=== PATIENT | female | born 1960 | race Caucasian/White ===

== ENCOUNTER 2020-05-04 08:52 | Outpatient (CLI) | payer OTHER ==
--- NOTE | 2020-05-04 11:08 | RAD ---
Right knee 4 views: HISTORY: Knee pain. FINDINGS: Moderate degenerative changes are noted. Mild loss of medial joint space. Marginal osteophytes are seen bilaterally, more prominent medially. Prominent osteophytes and narrowing of the patellofemoral joint. No significant joint effusion. IMPRESSION: Moderate degenerative changes right knee. POS: [facility]
== END 2020-05-04 08:53 | disposition home or self-care (01) ==
LOC: RAD-FRANK 08:52
PROVIDERS: ATTEND Nurse Practitioner Family
DX: M25.561 Pain in right knee (principal); M17.11 Unilateral primary osteoarthritis, right knee

== ENCOUNTER 2020-10-06 10:30 | Inpatient (IN) | payer BC ==
[2020-10-06 21:54] LABS: SARS-CoV-2 NAA Rapid Test Not Detected (NotDetected)
[2020-10-11] MEDS ORDERED: Tranexamic Acid 1,000 MG/10 ML VIAL ONE (05:52)
[2020-10-11] MEDS ORDERED: Sodium Chloride 0.9% 100 ML ONE ×2 (05:53→06:55)
[2020-10-11] MEDS ORDERED: Vancomycin 1 GM in Premix Bag 1 BAG IVPB SCH (06:00)
[2020-10-11] MEDS ORDERED: Fentanyl 100 MCG/2 ML VIAL ONE ×3 (06:32→09:48)
[2020-10-11] MEDS ORDERED: Midazolam HCl 2 mg/2 ml Vial ONE (06:32)
[2020-10-11] MEDS ORDERED: Ondansetron PF 4 MG/2 ML Vial IVP PRN ×2 (06:50→07:30)
[2020-10-11] MEDS ORDERED: Zolpidem Tartrate 5 MG TAB PO PRN ×2 (06:50→07:30)
[2020-10-11] MEDS ORDERED: diphenhydrAMINE 25 MG CAP PO PRN (06:50)
[2020-10-11] MEDS ORDERED: Promethazine HCl 25 MG/ML VIAL IM PRN ×2 (06:50→08:44)
[2020-10-11] MEDS ORDERED: HYDROcodone/Acetaminophen 10/325 mg Tablet PO PRN ×4 (06:50→07:30)
[2020-10-11] MEDS ORDERED: Vancomycin 1 GM/200 ML BAG ONE (06:55)
[2020-10-11] MEDS ORDERED: Vancomycin HCl 500 MG VIAL ONE (06:55)
[2020-10-11] MEDS ORDERED: CEFAZOLIN 2 GM in Premix Bag 1 BAG IVPB SCH (07:00)
[2020-10-11] MEDS ORDERED: Clindamycin/D5W 900 mg/50 ml Premix Bag ONE (07:04)
[2020-10-11] MEDS ORDERED: Levofloxacin 500 mg/D5W 100 ml Premix Bag ONE (07:04)
[2020-10-11] MEDS ORDERED: PROPOFOL 200 MG/20 ML VIAL ONE (07:23)
[2020-10-11] MEDS ORDERED: Ondansetron PF 4 MG/2 ML Vial ONE (07:23)
[2020-10-11] MEDS ORDERED: Lidocaine 1% PF 5 ML VIAL ONE (07:23)
[2020-10-11] MEDS ORDERED: Bupivacaine HCl 0.5%/Epinephrine 1:200,000/PF 30 ml Vial ONE (07:23)
[2020-10-11] MEDS ORDERED: Ropivacaine 2% HCl/PF (20 MG/10 ML VIAL) ONE (07:23)
[2020-10-11] MEDS ORDERED: Fentanyl 100 MCG/2 ML VIAL SLOW IVP PRN (07:28)
[2020-10-11] MEDS ORDERED: Ropivacaine 0.2% 550 ML 550 ML NERVE BLCK SCH (07:30)
[2020-10-11] MEDS ORDERED: traMADol HCl 50 MG TAB PO PRN (07:30)
[2020-10-11] MEDS ORDERED: Ondansetron HCl/PF 4 MG/2 ML Vial IVP PRN (08:44)
[2020-10-11] MEDS ORDERED: Promethazine HCl 25 MG/ML VIAL SLOW IVP PRN (08:44)
[2020-10-11] MEDS ORDERED: Ketorolac Tromethamine 30 MG/ML VIAL ONE (09:08)
[2020-10-11 10:42] VITALS: BMI 41.1
[2020-10-11] MEDS: Aspirin 81 mg Enteric Coated Tablet PO SCH ×2 (11:02→21:43)
[2020-10-11] MEDS: Sodium Chloride 0.9% 1,000 ML IV SCH ×2 (11:02→14:15)
[2020-10-11] MEDS ORDERED: Ketorolac Tromethamine 30 MG/ML VIAL IVP SCH ×2 (12:00→14:00)
[2020-10-11] MEDS: Promethazine HCl 25 MG/ML VIAL IM PRN ×2 (12:01→13:17)
[2020-10-11] MEDS: Ketorolac Tromethamine 30 MG/ML VIAL IVP SCH ×2 (14:15→21:42)
[2020-10-11] MEDS ORDERED: Clindamycin/D5W 900 MG in Premix Bag 1 BAG IVPB SCH (15:00)
[2020-10-11] MEDS: Vancomycin 1.5 GRAM/300 ML BAG 1.5 GM in Premix Bag 1 BAG IVPB SCH (18:57)
[2020-10-11] MEDS: Acetaminophen 325 MG TAB PO PRN (19:02)
[2020-10-12] MEDS: Sodium Chloride 0.9% 1,000 ML IV SCH ×2 (02:36→15:30)
[2020-10-12] MEDS: Ketorolac Tromethamine 30 MG/ML VIAL IVP SCH ×4 (02:37→20:43)
[2020-10-12 05:49] LABS: Hemoglobin 10.5 g/dL (12.0-16.0); Mean Corpuscular HGB CONC 32.5 g/dL (32.0-36.0); Mean Corpuscular Hemoglobin 29.9 pg (27.0-31.0); Mean Corpuscular Volume 91.9 fL (78.0-98.0); Mean Platelet Volume 7.2 fL (7.4-10.4); Platelet Count 275 thou/uL (130-400); RBC Distribution Width 12.3 % (11.5-14.5); Red Blood Cell (RBC) Count 3.51 mill/uL (4.20-5.40); White Blood Cell (WBC) Count 11.1 thou/uL (4.8-10.8)
[2020-10-12] MEDS: Vancomycin 1.5 GRAM/300 ML BAG 1.5 GM in Premix Bag 1 BAG IVPB SCH ×2 (06:09→18:06)
[2020-10-12] MEDS: Ferrous Gluconate 324 MG TAB PO SCH ×2 (08:57→18:06)
[2020-10-12] MEDS: Aspirin 81 mg Enteric Coated Tablet PO SCH ×2 (08:57→20:40)
[2020-10-12] MEDS: Senokot S 8.6-50 MG TAB PO SCH ×2 (08:57→20:41)
[2020-10-12] MEDS: Multivitamin W/ Minerals 1 TAB PO SCH (08:57)
[2020-10-12] MEDS: traMADol HCl 50 MG TAB PO PRN (15:00)
[2020-10-13] MEDS: Sodium Chloride 0.9% 1,000 ML IV SCH ×2 (00:15→08:51)
[2020-10-13] MEDS: traMADol HCl 50 MG TAB PO PRN (03:48)
[2020-10-13] MEDS: Ketorolac Tromethamine 30 MG/ML VIAL IVP SCH ×2 (03:49→08:35)
[2020-10-13] MEDS: Vancomycin 1.5 GRAM/300 ML BAG 1.5 GM in Premix Bag 1 BAG IVPB SCH (07:21)
[2020-10-13 07:47] VITALS: BP 125/77; TEMP 97.7
[2020-10-13] MEDS: Senokot S 8.6-50 MG TAB PO SCH (08:35)
[2020-10-13] MEDS: Multivitamin W/ Minerals 1 TAB PO SCH (08:35)
[2020-10-13] MEDS: Ferrous Gluconate 324 MG TAB PO SCH (08:35)
[2020-10-13] MEDS: Aspirin 81 mg Enteric Coated Tablet PO SCH (08:35)
[2020-10-13] MEDS: Acetaminophen 325 MG TAB PO PRN (13:30)
== END 2020-10-13 14:15 | disposition home or self-care (01) | DRG 470 ==
LOC: SURG A 10-11 05:27 → EDSTATUS 10-11 10:30 → SJJU 10-11 11:20
PROVIDERS: ADMIT Orthopaedic Surgery; ATTEND Orthopaedic Surgery
PROC: 0SRC0J9 Replacement of Right Knee Joint with Synthetic Substitute, Cemented, Open Approach (ICD-10-PCS; principal; 2020-10-11)
DX: M17.11 Unilateral primary osteoarthritis, right knee (principal); Z68.41 Body mass index [BMI] 40.0-44.9, adult; F17.200 Nicotine dependence, unspecified, uncomplicated; Z20.822 Contact with and (suspected) exposure to COVID-19; E66.01 Morbid (severe) obesity due to excess calories; Z88.0 Allergy status to penicillin
CPT/HCPCS: 36415; 85027; 86850; 86900; 86901; A4306; C1713; C1776; J1885; J1956; J2250; J2405; J2550; J2704; J2795; J3010; J3370; J3490; U0002; U0005

== ENCOUNTER 2020-10-06 10:39 | Outpatient (CLI) | payer BC ==
[2020-10-06 12:49] LABS: Bilirubin Neg (Negative); Blood, Urine Negative (Negative); Clarity Clear (Clear); Glucose, Urine (Dipstick) Normal (Negative); Ketone, Urine Negative (Negative); Leukocyte Negative (Negative); Nitrite Negative (Negative); Protein, Urine (Dipstick) Negative (Neg-Trace); Specific Gravity, Urine 1.005 (1.002-1.036); Urobilinogen Normal mg/dL (Less than 2)
[2020-10-06 12:56] LABS: Prothrombin Time 11.2 sec (9.5-12.1)
[2020-10-06 12:58] LABS: Bacteria/HPF 1+ HPF (None Seen); RBC/HPF None Seen HPF (0-3); Squamous Epithelial 0-3 HPF (0-3); WBC/HPF None Seen HPF (0-3)
[2020-10-06 13:08] LABS: Anion Gap 13 mmol/L (10-20); BUN (Urea Nitrogen) 12 mg/dL (9.8-20.1); Calc. Creatinine Clearance 0 mL/min (70-130); Calcium 9.3 mg/dL (7.8-10.44); Carbon Dioxide 24 mmol/L (22-29); Chloride 109 mmol/L (98-107); Glucose 91 mg/dL (70-105); Potassium 4.1 mmol/L (3.5-5.1); Sodium 142 mmol/L (136-145)
[2020-10-06 13:09] LABS: #Basophils 0.1 10x3/uL (0.0-0.2); #Eosinphils 0.3 10x3/uL (0.0-0.5); #Monocytes 0.9 10x3/uL (0.0-1.1); #Neutrophils 5.4 10x3/uL (1.5-8.4); %Basophils 0.7 % (0.0-2.0); %Eosinophils 3.5 % (0.0-6.0); %Lymphocytes 19.6 % (18.0-47.0); %Monocytes 10.7 % (0.0-10.0); %Neutrophils 64.9 % (40.0-75.0); Hemoglobin 13.1 g/dL (12.0-15.5); Mean Corpuscular HGB CONC 32.1 g/dL (32.0-36.0); Mean Corpuscular Hemoglobin 29.2 pg (27.0-33.0); Mean Corpuscular Volume 91.1 fl (81.6-98.3); Mean Platelet Volume 9.4 fl (7.4-10.4); Platelet Count 378 10x3/uL (150-450); RBC Distribution Width 13.1 % (11.5-14.5); Red Blood Cell (RBC) Count 4.48 10x6/uL (3.90-5.03); White Blood Cell (WBC) Count 8.3 10x3/uL (3.5-10.5)
[2020-10-06 21:54] LABS: SARS-CoV-2 NAA Rapid Test Not Detected (NotDetected)
== END 2020-10-06 10:40 | disposition home or self-care (01) ==
LOC: LABBT 10:39
PROVIDERS: ATTEND Orthopaedic Surgery
DX: Z01.818 Encounter for other preprocedural examination (principal); M17.11 Unilateral primary osteoarthritis, right knee; Z20.822 Contact with and (suspected) exposure to COVID-19
CPT/HCPCS: 80048; 81001; 85025; 85610; 86850; 86900; 86901; 87081; 93005; 93010; U0002; U0005

== ENCOUNTER 2021-11-07 11:21 | Outpatient (CLI) | payer BC ==
[2021-11-07 12:50] LABS: #Basophils 0.1 10x3/uL (0.0-0.2); #Eosinphils 0.3 10x3/uL (0.0-0.5); #Monocytes 0.9 10x3/uL (0.0-1.1); #Neutrophils 5.1 10x3/uL (1.5-8.4); %Basophils 0.6 % (0.0-2.0); %Eosinophils 3.3 % (0.0-6.0); %Lymphocytes 19.4 % (18.0-47.0); %Monocytes 10.9 % (0.0-10.0); %Neutrophils 65.5 % (40.0-75.0); Hemoglobin 12.6 g/dL (12.0-15.5); Mean Corpuscular HGB CONC 32.7 g/dL (32.0-36.0); Mean Corpuscular Hemoglobin 28.3 pg (27.0-33.0); Mean Corpuscular Volume 86.3 fl (81.6-98.3); Mean Platelet Volume 9.3 fl (7.4-10.4); Platelet Count 347 10x3/uL (150-450); RBC Distribution Width 13.4 % (11.5-14.5); Red Blood Cell (RBC) Count 4.46 10x6/uL (3.90-5.03); White Blood Cell (WBC) Count 7.8 10x3/uL (3.5-10.5)
[2021-11-07 12:54] LABS: Prothrombin Time 10.6 sec (9.5-12.1)
[2021-11-07 12:59] LABS: Anion Gap 14 mmol/L (10-20); BUN (Urea Nitrogen) 14 mg/dL (9.8-20.1); Calc. Creatinine Clearance 0 mL/min (70-130); Calcium 9.1 mg/dL (7.8-10.44); Carbon Dioxide 23 mmol/L (23-31); Chloride 111 mmol/L (98-107); Estimated GFR 81; Glucose 94 mg/dL (80-115); Sodium 144 mmol/L (136-145)
== END 2021-11-07 11:22 | disposition home or self-care (01) ==
LOC: LABBT 11:21
PROVIDERS: ATTEND Orthopaedic Surgery
DX: Z01.818 Encounter for other preprocedural examination (principal); M17.12 Unilateral primary osteoarthritis, left knee
CPT/HCPCS: 80048; 85025; 85610; 87081; 87811; 93005; 93010

== ENCOUNTER 2021-11-09 06:44 | Observation (INO) | payer BC ==
[2021-11-07 12:42] VITALS: BMI 37.4
[2021-11-09] MEDS ORDERED: Tranexamic Acid 1,000 MG/10 ML VIAL ONE (07:42)
[2021-11-09] MEDS ORDERED: Sodium Chloride 0.9% 0 ML ONE (07:42)
[2021-11-09] MEDS ORDERED: Vancomycin (BATCH) 1.5 GRAM/300 ML BAG ONE (07:42)
[2021-11-09] MEDS ORDERED: Midazolam HCl 2 mg/2 ml Vial ONE (08:38)
[2021-11-09] MEDS ORDERED: Fentanyl 100 MCG/2 ML VIAL ONE (08:38)
[2021-11-09] MEDS ORDERED: Fentanyl 100 MCG/2 ML VIAL IV PRN (09:36)
[2021-11-09] MEDS ORDERED: Ropivacaine 0.2% 550 ML 550 ML NERVE BLCK SCH (09:45)
[2021-11-09] MEDS ORDERED: Promethazine HCl 25 MG/ML VIAL IM PRN ×3 (09:45→10:24)
[2021-11-09] MEDS ORDERED: Zolpidem Tartrate 5 MG TAB PO PRN ×2 (09:45→10:03)
[2021-11-09] MEDS ORDERED: HYDROcodone/Acetaminophen 10/325 mg Tablet PO PRN ×2 (09:45)
[2021-11-09] MEDS ORDERED: traMADol HCl 50 MG TAB PO PRN (09:45)
[2021-11-09] MEDS ORDERED: Ondansetron PF 4 MG/2 ML Vial IVP PRN ×2 (09:45→10:03)
[2021-11-09] MEDS ORDERED: fentaNYL Citrate/PF 100 MCG/2 ML SYRINGE ONE ×2 (09:50→10:42)
[2021-11-09] MEDS ORDERED: Sodium Chloride 0.9% 100 ML ONE (09:50)
[2021-11-09] MEDS ORDERED: CEFAZOLIN 2 GM VIAL ONE (09:50)
[2021-11-09] MEDS ORDERED: Bupivacaine PF 0.5% 30 ML VIAL ONE (10:00)
[2021-11-09] MEDS ORDERED: Acetaminophen 325 MG TAB PO PRN (10:03)
[2021-11-09] MEDS ORDERED: diphenhydrAMINE 25 MG CAP PO PRN (10:03)
[2021-11-09] MEDS ORDERED: Ondansetron PF 4 MG/2 ML Vial ONE (10:08)
[2021-11-09] MEDS ORDERED: PROPOFOL 200 MG/20 ML VIAL ONE (10:08)
[2021-11-09] MEDS ORDERED: Lidocaine 1% PF 5 ML VIAL ONE (10:08)
[2021-11-09] MEDS ORDERED: Bupivacaine HCl 0.5%/Epinephrine 1:200,000/PF 30 ml Vial ONE (10:08)
[2021-11-09] MEDS ORDERED: Dexamethasone 20 MG/5 ML VIAL ONE (10:08)
[2021-11-09] MEDS ORDERED: ceFAZolin 2 GM/Dextrose 50 ML 2 GM in Premix Bag 1 BAG IVPB SCH (10:15)
[2021-11-09] MEDS ORDERED: Ondansetron HCl/PF 4 MG/2 ML Vial IVP PRN (10:24)
[2021-11-09] MEDS ORDERED: Promethazine HCl 25 MG/ML VIAL IVPB PRN (10:24)
[2021-11-09] MEDS: Ketorolac Tromethamine 30 MG/ML VIAL IVP SCH ×3 (14:06→17:50)
[2021-11-09] MEDS: traMADol HCl 50 MG TAB PO PRN ×2 (14:16→19:44)
[2021-11-09] MEDS: CEFAZOLIN 2 GM in Sodium Chloride 0.9% 100 ML IVPB SCH ×2 (15:44→22:43)
[2021-11-09] MEDS: Ferrous Gluconate 324 MG TAB PO SCH (19:38)
[2021-11-09] MEDS: Aspirin 81 mg Enteric Coated Tablet PO SCH (19:39)
[2021-11-09] MEDS: Senokot S 8.6-50 MG TAB PO SCH (19:51)
[2021-11-10] MEDS: Ketorolac Tromethamine 30 MG/ML VIAL IVP SCH ×3 (00:24→12:32)
[2021-11-10 05:10] LABS: Hemoglobin 10.3 g/dL (12.0-16.0); Mean Corpuscular HGB CONC 32.4 g/dL (32.0-36.0); Mean Corpuscular Hemoglobin 29.6 pg (27.0-31.0); Mean Corpuscular Volume 91.4 fL (78.0-98.0); Mean Platelet Volume 7.4 fL (7.4-10.4); Platelet Count 281 thou/uL (130-400); RBC Distribution Width 12.6 % (11.5-14.5); Red Blood Cell (RBC) Count 3.49 mill/uL (4.20-5.40); White Blood Cell (WBC) Count 13.8 thou/uL (4.8-10.8)
[2021-11-10] MEDS ORDERED: Multivitamin W/ Minerals 1 TAB PO SCH (09:00)
[2021-11-10] MEDS: Aspirin 81 mg Enteric Coated Tablet PO SCH (09:33)
[2021-11-10] MEDS: Ferrous Gluconate 324 MG TAB PO SCH (09:33)
[2021-11-10] MEDS: Senokot S 8.6-50 MG TAB PO SCH (09:33)
[2021-11-10] MEDS: traMADol HCl 50 MG TAB PO PRN (09:35)
[2021-11-10 11:35] VITALS: BP 118/64; TEMP 97.6
== END 2021-11-10 12:45 | disposition home or self-care (01) ==
LOC: SDC 06:44 → SURG A 10:04 → SDC 15:35
PROVIDERS: ADMIT Orthopaedic Surgery; ATTEND Orthopaedic Surgery
PROC: 0SRD0J9 Replacement of Left Knee Joint with Synthetic Substitute, Cemented, Open Approach (ICD-10-PCS; principal; 2021-11-10)
PROC: 8E0YXBZ Computer Assisted Procedure of Lower Extremity (ICD-10-PCS; 2021-11-10)
DX: M17.12 Unilateral primary osteoarthritis, left knee (principal); M21.162 Varus deformity, not elsewhere classified, left knee; F17.200 Nicotine dependence, unspecified, uncomplicated; Z88.0 Allergy status to penicillin
CPT/HCPCS: 36415; 85027; 96365; 96375; 96376; A4306; C1713; C1776; G0378; J0690; J1100; J1885; J2250; J2405; J2704; J2795; J3010; J3370; J3490; S0020